=== PATIENT | female | born 1980 | race Caucasian/White ===

== ENCOUNTER 2016-10-23 06:48 | Inpatient (IN) | payer BC ==
[2016-10-23] MEDS ORDERED: Sodium Chloride 0.9% 10 ML Syringe FLUSH PRN (07:12)
[2016-10-23] MEDS ORDERED: Acetaminophen 325 MG Tab PO PRN (07:12)
[2016-10-23] MEDS ORDERED: Ondansetron 4 MG/2 ML SDV IVPUSH PRN ×2 (07:12→19:18)
[2016-10-23] MEDS ORDERED: Nalbuphine 20 MG/1 ML Amp IVPUSH PRN (07:12)
--- NOTE | 2016-10-23 07:12 | PCM.LDHP ---
L&D History of Present Illness - General Date of Service: 10/23/16 Admit Problem/Dx: Admission Diagnosis/Problem Admission Diagnosis/Problem Source of Information: Patient History Limitations: Reports: No limitations - History of Present Illness Introduction:: Patient is a 35 y/o at 37 2/7 wks in a di-di twin gestation who presents today for IOL for gestational HTN. Has been doing well since last seen. No issues with headaches, vision changes, RUQ pain. No contractions or signs of labor. Getting good FM x2. No other issues. - Related Data Allergies/Adverse Reactions: Allergies Allergy/AdvReac Type Severity Reaction Status Date / Time amoxicillin Allergy Hives Verified 10/05/16 09:26 nut - unspecified Allergy Anaphylactic Verified 10/05/16 09:26 Shock fruits Allergy Swollen Uncoded 10/05/16 09:26 Tongue vegetables Allergy Swollen Uncoded 10/05/16 09:26 Tongue Home Medications: Home Meds Albuterol [Ventolin HFA] 108 mcg INH Q4H 10/05/16 [History] Budesonide 32 mcg NS DAILY 10/05/16 [History] Cetirizine [ZyrTEC] 10 mg PO DAILY 10/05/16 [History] EPINEPHrine [Epipen] 0.3 mg IM ONETIME PRN 10/05/16 [History] Folic Acid 1 mg PO DAILY 10/05/16 [History] Montelukast [Singulair] 10 mg PO DAILY 10/05/16 [History] Omeprazole 20 mg PO DAILY 10/05/16 [History] Past Medical History Respiratory History: Reports: Asthma 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: : 2 Para: 0 LMP (Approximate): - Past Surgical History HEENT Surgical History: Reports: Oral surgery (tooth extraction) Social & Family History - Tobacco Use Smoking Status *Q: Never Smoker - Alcohol Use Alcohol Use History: No - Recreational Drug Use Recreational Drug Use: No H&P Review of Systems - Review of Systems: Review Of Systems: See Below General: Reports: no symptoms Pulmonary: Reports: No Symptoms Cardiovascular: Reports: no symptoms Gastrointestinal: Reports: No symptoms Genitourinary: Reports: no symptoms Musculoskeletal: Reports: no symptoms Psychiatric: Reports: no symptoms Neurological: Reports: No Symptoms L&D Exam - Exam Exam: See Below - Vital Signs Weight: 115.076 kg - OB Specific Contraction Intensity: Irritability movement: active heart tones: present heart tones per min: 130 (A, 130 B) Heart Rate (FHR) Variability: Moderate (6-25 bmp) Presentation: Vertex (Vertex for baby A, Baby B oblique with head to maternal right) - Cullen Score Cullen Score Cervix Position: Posterior Cullen Score Consistency: Soft Cullen Score Effacement: 51-70% Cullen Score Dilation: 1-2 cm Cullen Score Infant's Station: -1 ,0 Cullen Score Total: 7 - Exam General: alert, oriented, cooperative Lungs: Clear to auscultation, Normal respiratory effort Cardiovascular: regular rate, regular rhythm Abdomen: soft Genitourinary: Normal external exam Extremities: normal inspection Skin: warm, dry, intact - Patient Data Result Diagrams: 10/23/16 07:47 - Problem List (1) Dichorionic diamniotic twin in third trimester SNOMED Code(s): 919011527 ICD Code: O30.043 - TWIN , DICHORIONIC/DIAMNIOTIC, THIRD TRIMESTER Status: Acute Current Visit: No (2) 37 weeks gestation of SNOMED Code(s): 05713851 ICD Code: Z3A.37 - 37 WEEKS GESTATION OF Status: Acute Current Visit: Yes (3) Gestational hypertension SNOMED Code(s): 08343460 ICD Code: O13.9 - GESTATIONAL HTN W/O SIGNIFICANT PROTEINURIA, UNSP TRIMESTER Status: Acute Current Visit: Yes Qualifiers: Trimester: third trimester Qualified Code(s): O13.3 - Gestational [ -induced] hypertension without significant proteinuria, third trimester (4) GBS (group B Streptococcus carrier), +RV culture, currently SNOMED Code(s): 98506135, 939718069 ICD Code: O99.820 - STREPTOCOCCUS B CARRIER STATE COMPLICATING Status: Acute Current Visit: Yes Problem List Initiated/Reviewed/Updated: Yes Assessment/Plan Comment:: 35 y/o at 37 2/7 wks in a di-di twin gestation who presents for IOL for gestational HTN. Last US on 10/17 showed Baby A to be vertex and 3064 grams and Baby B to be breech with a weight of 2629 grams. Growth discordance of 14%. Today on bedside US Baby A is vertex and Baby B is oblique, head down to maternal right. Discussed with patient finding. Will plan for vaginal delivery. She is aware that if Baby B does not come down in a vertex fashion that the would necessitate either breech extraction vs proceeding with c- section. She is aware of risks of breech extraction. Also aware of risks of c- section. Otherwise will perform baseline labs today on admission. Close monitoring of BP's. GBS positive and will need vancomycin. Will start now. Pitocin to be started for induction with AROM when able. Patient plans epidural in labor.
[2016-10-23] MEDS ORDERED: Oxytocin/Lactated Ringers 10 UNIT/1,000 ML BAG IV SCH (07:15)
[2016-10-23] MEDS: Lactated Ringers 1,000 ML IV SCH ×5 (08:01→21:50)
[2016-10-23] MEDS: Oxytocin/Lactated Ringers 10 UNIT/1,000 ML BAG IV SCH (08:32)
--- NOTE | 2016-10-23 12:11 | PCM.PNLD ---
Labor Progress Note - VS & Meds Vital Signs: Last Vital Signs Temp 37.1 C 10/23/16 07:12 Pulse 92 10/23/16 07:12 Resp 20 10/23/16 07:12 BP 137/91 H 10/23/16 07:12 Pulse Ox 97 10/23/16 07:12 Active Medications: Current Medications Acetaminophen (Tylenol) 650 mg PO Q4H PRN PRN Reason: Pain (Mild 1-3) and fever Lactated Ringer's (Ringers, Lactated) 1,000 mls @ 40 mls/hr IV ASDIRECTED GUERLINE Last Admin: 10/23/16 11:17 Dose: 100 mls/hr Vancomycin HCl 1 gm/ Sodium (Chloride) 250 mls @ 250 mls/hr IV Q12H GUERLINE Last Admin: 10/23/16 08:28 Dose: 250 mls/hr Oxytocin/Lactated Ringer's (Pitocin In Lr 10 Units/1,000 Ml) 10 unit in 1,000 mls @ 500 mls/hr IV TITRATE GUERLINE PRN Reason: Protocol Oxytocin/Lactated Ringer's (Pitocin In Lr 10 Units/1,000 Ml) 10 unit in 1,000 mls @ 12 mls/hr IV TITRATE GUERLINE; 2 MUNITS/MIN PRN Reason: Protocol Last Titration: 10/23/16 11:14 Dose: 8 munits/min, 48 mls/hr Nalbuphine HCl (Nubain) 10 mg IVPUSH Q2H PRN PRN Reason: Pain (moderate 4-6) Ondansetron HCl (Zofran) 4 mg IVPUSH Q4H PRN PRN Reason: Nausea/Vomiting Sodium Chloride (Saline Flush) 10 ml FLUSH ASDIRECTED PRN PRN Reason: Keep Vein Open - Uterine Contractions Uterine Monitoring Mode: External [place] Contraction Intensity: Mild to Moderate - Monitoring Monitor Mode: External Ultrasound Heart Rate (FHR) Baseline: 140 (A, 135 B) Heart Rate (FHR) Variability: Moderate (6-25 bmp) Accelerations: Present, 15x15 Decelerations: Variable (Variables noted on both babies, intermittent. Slightly deeper on Baby B) Strip Review: Category II - Vaginal Exam Dilation (cm): 2 Effacement (Percent): 50 Station: -1 Cervical Position: Posterior - Labor Progress (Free Text) Labor Progress: Patient doing well. On 8 of pitocin. Feeling some tightening/discomfort. AROM performed with release of slight blood tinged fluid. Continue present management. BP's normal to mild range. Labs normal other than +1 protein.
--- NOTE | 2016-10-23 12:12 | PCM.PREANE ---
Preanesthetic Assessment - Physical Assessment O2 Sat by Pulse Oximetry: 97 Respiratory Rate: 20 Vital Signs: Last Vital Signs Temp 37.1 C 10/23/16 07:12 Pulse 92 10/23/16 07:12 Resp 20 10/23/16 07:12 BP 137/91 H 10/23/16 07:12 Pulse Ox 97 10/23/16 07:12 Height: 1.68 m Weight: 113.761 kg - Lab Values: Laboratory Last Values WBC 10.22 K/mm3 (3.98-10.04) H 10/23/16 07:47 RBC 4.12 M/mm3 (3.98-5.22) 10/23/16 07:47 Hgb 12.7 gm/L (11.2-15.7) 10/23/16 07:47 Hct 38.8 % (34.1-44.9) 10/23/16 07:47 MCV 94.2 fl (79.4-94.8) 10/23/16 07:47 MCH 30.8 pg (25.6-32.2) 10/23/16 07:47 MCHC 32.7 g/dl (32.2-35.5) 10/23/16 07:47 RDW Std Deviation 42.6 fL (36.4-46.3) 10/23/16 07:47 Plt Count 202 K/mm3 (182-369) 10/23/16 07:47 MPV 11.8 fl (9.4-12.3) 10/23/16 07:47 Creatinine 0.8 mg/dL (0.55-1.02) 10/23/16 07:47 Est Cr Clr Drug Dosing 91.01 mL/min 10/23/16 07:47 Estimated GFR (MDRD) > 60 mL/min (>60) 10/23/16 07:47 AST 38 U/L (15-37) H 10/23/16 07:47 ALT 45 U/L (14-59) 10/23/16 07:47 Urine Color Yellow (Yellow) 10/23/16 09:50 Urine Appearance Clear (Clear) 10/23/16 09:50 Urine pH 7.0 (5.0-8.0) 10/23/16 09:50 Ur Specific [place] 1.020 (1.005-1.030) 10/23/16 09:50 Urine Protein 1+ (Negative) H 10/23/16 09:50 Urine Glucose (UA) Negative (Negative) 10/23/16 09:50 Urine Ketones Negative (Negative) 10/23/16 09:50 Urine Occult Blood 3+ (Negative) H 10/23/16 09:50 Urine Nitrite Negative (Negative) 10/23/16 09:50 Urine Bilirubin Negative (Negative) 10/23/16 09:50 Urine Urobilinogen 0.2 (0.2-1.0) 10/23/16 09:50 Ur Leukocyte Esterase Negative (Negative) 10/23/16 09:50 Urine RBC 5-10 /hpf (0-5) H 10/23/16 09:50 Urine WBC 0-5 /hpf (0-5) 10/23/16 09:50 Ur Epithelial Cells 0-5 /hpf (0-5) 10/23/16 09:50 Urine Bacteria Few /hpf (FEW) 10/23/16 09:50 Urine Mucus Not seen /hpf (FEW) 10/23/16 09:50 Blood Type A POSITIVE 10/23/16 07:47 Gel Antibody Screen Negative 10/23/16 07:47 - Allergies Allergies/Adverse Reactions: Allergies Allergy/AdvReac Type Severity Reaction Status Date / Time amoxicillin Allergy Hives Verified 10/05/16 09:26 nut - unspecified Allergy Anaphylactic Verified 10/05/16 09:26 Shock fruits Allergy Swollen Uncoded 10/05/16 09:26 Tongue vegetables Allergy Swollen Uncoded 10/05/16 09:26 Tongue PreAnesthesia Questionnaire Respiratory History: Reports: Asthma 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: - Past Surgical History HEENT Surgical History: Reports: Oral surgery (tooth extraction) - SUBSTANCE USE Smoking Status *Q: Never Smoker Recreational Drug Use History: No - HOME MEDS Home Medications: Home Meds Albuterol [Ventolin HFA] 108 mcg INH Q4H PRN 10/05/16 [History] Budesonide 32 mcg NS DAILY 10/05/16 [History] Cetirizine [ZyrTEC] 10 mg PO DAILY 10/05/16 [History] EPINEPHrine [Epipen] 0.3 mg IM ONETIME PRN 10/05/16 [History] Folic Acid 1 mg PO DAILY 10/05/16 [History] Montelukast [Singulair] 10 mg PO DAILY 10/05/16 [History] Omeprazole 20 mg PO DAILY 10/05/16 [History] Multivitamin [Flintstones] 1 each PO DAILY 10/23/16 [History] Omeprazole Magnesium [Prilosec Otc] 20 mg PO 10/23/16 [History] - CURRENT (IN HOUSE) MEDS Current Meds: Current Medications Acetaminophen (Tylenol) 650 mg PO Q4H PRN PRN Reason: Pain (Mild 1-3) and fever Lactated Ringer's (Ringers, Lactated) 1,000 mls @ 40 mls/hr IV ASDIRECTED GUERLINE Last Admin: 10/23/16 11:17 Dose: 100 mls/hr Vancomycin HCl 1 gm/ Sodium (Chloride) 250 mls @ 250 mls/hr IV Q12H GUERLINE Last Admin: 10/23/16 08:28 Dose: 250 mls/hr Oxytocin/Lactated Ringer's (Pitocin In Lr 10 Units/1,000 Ml) 10 unit in 1,000 mls @ 500 mls/hr IV TITRATE GUERLINE PRN Reason: Protocol Oxytocin/Lactated Ringer's (Pitocin In Lr 10 Units/1,000 Ml) 10 unit in 1,000 mls @ 12 mls/hr IV TITRATE GUERLINE; 2 MUNITS/MIN PRN Reason: Protocol Last Titration: 10/23/16 11:14 Dose: 8 munits/min, 48 mls/hr Nalbuphine HCl (Nubain) 10 mg IVPUSH Q2H PRN PRN Reason: Pain (moderate 4-6) Ondansetron HCl (Zofran) 4 mg IVPUSH Q4H PRN PRN Reason: Nausea/Vomiting Sodium Chloride (Saline Flush) 10 ml FLUSH ASDIRECTED PRN PRN Reason: Keep Vein Open Preanesthetic Assessment - ANESTHESIA/TRANSFUSION/FAMILY HX Anesthesia/Transfusion History: No Prior Anesthesia, No Prior Transfusion(s) Family History of Anesthesia Reaction: No - REVIEW OF SYSTEMS Constitutional: Reports: no symptoms 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 Respiratory: Reports: no symptoms (asthma (uses symbicort daily)) Cardiovascular: Reports: blood pressure problem (gestational htn, not taking any medications for htn) GI: Reports: no symptoms (GERD with ) Other: Reports: None - PHYSICAL ASSESSMENT O2 Sat by Pulse Oximetry: 97 RR: 20 Vital Signs: Last Vital Signs Temp 37.1 C 10/23/16 07:12 Pulse 92 10/23/16 07:12 Resp 20 10/23/16 07:12 BP 137/91 H 10/23/16 07:12 Pulse Ox 97 10/23/16 07:12 Height: 1.68 m Weight: 113.761 kg NPO Status Date: 10/23/16 NPO Status Time: 12:00 ASA Class: 2 Mental Status: Alert & Oriented x3 Airway Class: Mallampati = 2 Dentition: Reports: Normal Dentition Thyro-Mental Finger Breadths: 3 Mouth Opening Finger Breadths: 3 ROM/Head Extension: Full Respiratory Status: lungs clear to auscultation bilaterally Cardiovascular Status: regular rate & rhythm, normal S1, S2, no murmur, blood pressure WNL - LAB Values: Laboratory Last Values WBC 10.22 K/mm3 (3.98-10.04) H 10/23/16 07:47 RBC 4.12 M/mm3 (3.98-5.22) 10/23/16 07:47 Hgb 12.7 gm/L (11.2-15.7) 10/23/16 07:47 Hct 38.8 % (34.1-44.9) 10/23/16 07:47 MCV 94.2 fl (79.4-94.8) 10/23/16 07:47 MCH 30.8 pg (25.6-32.2) 10/23/16 07:47 MCHC 32.7 g/dl (32.2-35.5) 10/23/16 07:47 RDW Std Deviation 42.6 fL (36.4-46.3) 10/23/16 07:47 Plt Count 202 K/mm3 (182-369) 10/23/16 07:47 MPV 11.8 fl (9.4-12.3) 10/23/16 07:47 Creatinine 0.8 mg/dL (0.55-1.02) 10/23/16 07:47 Est Cr Clr Drug Dosing 91.01 mL/min 10/23/16 07:47 Estimated GFR (MDRD) > 60 mL/min (>60) 10/23/16 07:47 AST 38 U/L (15-37) H 10/23/16 07:47 ALT 45 U/L (14-59) 10/23/16 07:47 Urine Color Yellow (Yellow) 10/23/16 09:50 Urine Appearance Clear (Clear) 10/23/16 09:50 Urine pH 7.0 (5.0-8.0) 10/23/16 09:50 Ur Specific [place] 1.020 (1.005-1.030) 10/23/16 09:50 Urine Protein 1+ (Negative) H 10/23/16 09:50 Urine Glucose (UA) Negative (Negative) 10/23/16 09:50 Urine Ketones Negative (Negative) 10/23/16 09:50 Urine Occult Blood 3+ (Negative) H 10/23/16 09:50 Urine Nitrite Negative (Negative) 10/23/16 09:50 Urine Bilirubin Negative (Negative) 10/23/16 09:50 Urine Urobilinogen 0.2 (0.2-1.0) 10/23/16 09:50 Ur Leukocyte Esterase Negative (Negative) 10/23/16 09:50 Urine RBC 5-10 /hpf (0-5) H 10/23/16 09:50 Urine WBC 0-5 /hpf (0-5) 10/23/16 09:50 Ur Epithelial Cells 0-5 /hpf (0-5) 10/23/16 09:50 Urine Bacteria Few /hpf (FEW) 10/23/16 09:50 Urine Mucus Not seen /hpf (FEW) 10/23/16 09:50 Blood Type A POSITIVE 10/23/16 07:47 Gel Antibody Screen Negative 10/23/16 07:47 - ALLERGIES Allergies/Adverse Reactions: Allergies Allergy/AdvReac Type Severity Reaction Status Date / Time amoxicillin Allergy Hives Verified 10/05/16 09:26 nut - unspecified Allergy Anaphylactic Verified 10/05/16 09:26 Shock fruits Allergy Swollen Uncoded 10/05/16 09:26 Tongue vegetables Allergy Swollen Uncoded 10/05/16 09:26 Tongue - BLOOD Blood Available: No Product(s) Available: None - ANESTHESIA PLAN Preop Beta Denisa: No Anesthesia Type Planned: Epidural - ACKNOWLEDGEMENTS Pt an Appropriate Candidate for the Planned Anesthesia: Yes Alternatives and Risks of Anesthesia Discussed w Pt/Guardian: Yes Pt/Guardian Understands and Agrees with Anesthesia Plan: Yes
[2016-10-23] MEDS ORDERED: fentaNYL 100 MCG/2 ML SDV EPIDUR PRN (19:18)
[2016-10-23] MEDS ORDERED: ePHEDrine 50 MG/ML SDV IVPUSH PRN (19:18)
[2016-10-23] MEDS ORDERED: diphenhydrAMINE 50 MG/ML SDV IVPUSH PRN (19:18)
--- NOTE | 2016-10-23 20:44 | PCM.PNLD ---
Labor Progress Note - VS & Meds Vital Signs: Last Vital Signs Temp 37.1 C 10/23/16 07:12 Pulse 92 10/23/16 07:12 Resp 20 10/23/16 12:23 BP 137/91 H 10/23/16 07:12 Pulse Ox 97 10/23/16 12:23 Active Medications: Current Medications Acetaminophen (Tylenol) 650 mg PO Q4H PRN PRN Reason: Pain (Mild 1-3) and fever Diphenhydramine HCl (Benadryl) 25 mg IVPUSH Q6H PRN PRN Reason: Pruritis Ephedrine Sulfate (Ephedrine Sulfate) 5 mg IVPUSH ASDIRECTED PRN PRN Reason: Hypotension Fentanyl (Sublimaze) 100 mcg EPIDUR Q3H PRN PRN Reason: Pain Fentanyl/Bupivacaine HCl (Fentanyl/Bupivacaine/Ns 2 Mcg-0.125% 100 Ml) 100 ml EPIDUR ASDIRECTED GUERLINE Lactated Ringer's (Ringers, Lactated) 1,000 mls @ 40 mls/hr IV ASDIRECTED GUERLINE Last Admin: 10/23/16 20:37 Dose: 999 mls/hr Vancomycin HCl 1 gm/ Sodium (Chloride) 250 mls @ 250 mls/hr IV Q12H GUERLINE Last Admin: 10/23/16 20:39 Dose: 250 mls/hr Oxytocin/Lactated Ringer's (Pitocin In Lr 10 Units/1,000 Ml) 10 unit in 1,000 mls @ 500 mls/hr IV TITRATE GUERLINE PRN Reason: Protocol Oxytocin/Lactated Ringer's (Pitocin In Lr 10 Units/1,000 Ml) 10 unit in 1,000 mls @ 12 mls/hr IV TITRATE GUERLINE; 2 MUNITS/MIN PRN Reason: Protocol Last Titration: 10/23/16 18:46 Dose: 6 munits/min, 36 mls/hr Nalbuphine HCl (Nubain) 10 mg IVPUSH Q2H PRN PRN Reason: Pain (moderate 4-6) Ondansetron HCl (Zofran) 4 mg IVPUSH Q4H PRN PRN Reason: Nausea/Vomiting Ondansetron HCl (Zofran) 4 mg IVPUSH ONETIME PRN PRN Reason: Nausea/Vomiting Sodium Chloride (Saline Flush) 10 ml FLUSH ASDIRECTED PRN PRN Reason: Keep Vein Open - Uterine Contractions Uterine Monitoring Mode: External [place] Contraction Intensity: Moderate to Strong - Monitoring Monitor Mode: External Ultrasound Heart Rate (FHR) Baseline: 140 (A, 140 B) Heart Rate (FHR) Variability: Moderate (6-25 bmp) Accelerations: Present, 15x15 Decelerations: Variable (Variables noted on both babies, intermittent. Slightly deeper on Baby B) Strip Review: Category II - Labor Progress (Free Text) Labor Progress: Patient doing well. Now starting to feel more uncomfortable. Pitocin has been decreased recently as contraction pattern picking up. Now at 6. Continue vancomycin. BP's mild range. Continue close observation.
[2016-10-23] MEDS: Bupivacaine/fentaNYL/NS 100 ML Bag EPIDUR SCH (21:04)
[2016-10-24] MEDS: Lactated Ringers 1,000 ML IV SCH ×2 (01:41→05:21)
[2016-10-24] MEDS: Oxytocin/Lactated Ringers 10 UNIT/1,000 ML BAG IV SCH (01:41)
--- NOTE | 2016-10-24 03:08 | PCM.PNLD ---
Labor Progress Note - VS & Meds Vital Signs: Last Vital Signs Temp 37.1 C 10/23/16 07:12 Pulse 92 10/23/16 07:12 Resp 20 10/23/16 12:23 BP 137/91 H 10/23/16 07:12 Pulse Ox 97 10/23/16 12:23 Active Medications: Current Medications Acetaminophen (Tylenol) 650 mg PO Q4H PRN PRN Reason: Pain (Mild 1-3) and fever Diphenhydramine HCl (Benadryl) 25 mg IVPUSH Q6H PRN PRN Reason: Pruritis Ephedrine Sulfate (Ephedrine Sulfate) 5 mg IVPUSH ASDIRECTED PRN PRN Reason: Hypotension Fentanyl (Sublimaze) 100 mcg EPIDUR Q3H PRN PRN Reason: Pain Last Admin: 10/23/16 21:04 Dose: 100 mcg Fentanyl/Bupivacaine HCl (Fentanyl/Bupivacaine/Ns 2 Mcg-0.125% 100 Ml) 100 ml EPIDUR ASDIRECTED GUERLINE Last Admin: 10/23/16 21:04 Dose: 100 ml Lactated Ringer's (Ringers, Lactated) 1,000 mls @ 40 mls/hr IV ASDIRECTED GUERLINE Last Admin: 10/24/16 01:41 Dose: 125 mls/hr Vancomycin HCl 1 gm/ Sodium (Chloride) 250 mls @ 250 mls/hr IV Q12H GUERLINE Last Admin: 10/23/16 20:39 Dose: 250 mls/hr Oxytocin/Lactated Ringer's (Pitocin In Lr 10 Units/1,000 Ml) 10 unit in 1,000 mls @ 500 mls/hr IV TITRATE GUERLINE PRN Reason: Protocol Oxytocin/Lactated Ringer's (Pitocin In Lr 10 Units/1,000 Ml) 10 unit in 1,000 mls @ 12 mls/hr IV TITRATE GUERLINE; 2 MUNITS/MIN PRN Reason: Protocol Last Titration: 10/24/16 02:36 Dose: 4 munits/min, 24 mls/hr Nalbuphine HCl (Nubain) 10 mg IVPUSH Q2H PRN PRN Reason: Pain (moderate 4-6) Ondansetron HCl (Zofran) 4 mg IVPUSH Q4H PRN PRN Reason: Nausea/Vomiting Ondansetron HCl (Zofran) 4 mg IVPUSH ONETIME PRN PRN Reason: Nausea/Vomiting Sodium Chloride (Saline Flush) 10 ml FLUSH ASDIRECTED PRN PRN Reason: Keep Vein Open - Uterine Contractions Uterine Monitoring Mode: External [place] Contraction Intensity: Moderate to Strong - Monitoring Monitor Mode: External Ultrasound Heart Rate (FHR) Baseline: 140 (A, 145 B) Heart Rate (FHR) Variability: Moderate (6-25 bmp) Accelerations: Present, 15x15 Decelerations: Variable (Variables noted on both babies, intermittent. Slightly deeper on Baby B) Strip Review: Category II - Vaginal Exam Dilation (cm): 8-9 Effacement (Percent): 90 Station: 0 Cervical Position: Anterior - Labor Progress (Free Text) Labor Progress: Patient doing well currently. Pitocin and been up and down throughout the night. Currently at 4. Cervix with great change since last exam. Will continue present augmentation. BP's remain normal to mild range. Will assess again in a few hours.
[2016-10-24] MEDS: Bupivacaine/fentaNYL/NS 100 ML Bag EPIDUR SCH (06:10)
[2016-10-24] MEDS ORDERED: Misoprostol 200 MCG Tab ONE (07:52)
[2016-10-24] MEDS ORDERED: Albuterol 6.7 GM Inhaler INH PRN (08:38)
[2016-10-24] MEDS ORDERED: Benzocaine/Menthol 20%-0.5% Spray 56 GM Canister TOP PRN (08:38)
[2016-10-24] MEDS ORDERED: Misoprostol 200 MCG Tab PO ONE (08:38)
[2016-10-24] MEDS ORDERED: Docusate Sodium 100 MG Cap PO PRN (08:38)
[2016-10-24] MEDS ORDERED: Acetaminophen 325 MG Tab PO PRN (08:38)
[2016-10-24] MEDS ORDERED: Lanolin 100% Cream 7 GM Tube TOP PRN (08:38)
[2016-10-24] MEDS ORDERED: Witch Hazel Medicated Pads 100/Jar TOP PRN (08:38)
--- NOTE | 2016-10-24 08:38 | PCM.DEL ---
L & D Note - General Info Date of Service: 10/24/16 - Delivery Note Labor: induced by ARM, induced by oxytocin Delivery Outcome: Livebirth Infant Delivery Method: Spontaneous Vaginal Delivery Infant Delivery Mode: Spontaneous Presentation: Left Occiput Anterior (RALF) (Baby A RALF, Baby B removed by breech extraction) Nuchal cord: none Anesthesia Type: Epidural Amniotic Fluid Description: Clear Episiotomy Type: None Laceration: 1st degree Suture type: vicryl Suture size: 2-0 Placenta: intact, spontaneous Cord: 3 vessels Estimated blood loss: 500 Resuscitation needed: Yes [place]: bulb syringe, stimulated, warmed, blanket used, warmer used Delivery Comments (Free Text/Narrative):: Patient found to be complete and began pushing. With maternal pushing effort Baby A head delivered from an RALF presentation. With gentle downward traction the shoulders and body delivered. Cord clamped and cut. Baby handed to awaiting electronics utility worker. Cord blood obtained. Inspection then performed and showed patient to be complete. Baby B head not engaged. Discussed again with patient options and she did desire trial of breech extraction. Hand placed into the uterus until foot able to be grasped. It was brought down out the vagina. With this ROM is occur. Another hand placed into the uterus and second foot grasped and also brought out the vagina. Gentle traction placed until hips visible. At this point a blue towel was placed over the hips and gentle traction and rotation done until one and then the other arms were delivered. Patient asked to push and head delivered without complication. Cord clamped and cut. [facility] obtained. Placenta allowed time to separate and then expelled. Moderate amount of bleeding encountered. Patient given 60 mcg of buccal cytote and uterine massage performed. Bleeding responded appropriately. Inspection of the perineum showed a 1st degree tear which was repaired with a 2-0 vicryl in the typical fashion. - Patient Data Vitals - most recent: Last Vital Signs Temp 37.1 C 10/23/16 07:12 Pulse 92 10/23/16 07:12 Resp 20 10/23/16 12:23 BP 137/91 H 10/23/16 07:12 Pulse Ox 97 10/23/16 12:23 Weight - most recent: 113.761 kg I&O - last 24 hours: Intake & Output 03/10/24/16 10/24/16 22:59 06:59 14:59 Intake Total 0 Balance 0 Lab Results last 24 hrs: Laboratory Results - last 24 hr 10/23/16 10/23/16 Range/Units 07:47 09:50 Urine Color Yellow (Yellow) Urine Appearance Clear (Clear) Urine pH 7.0 (5.0-8.0) Ur Specific [place] 1.020 (1.005-1.030) Urine Protein 1+ H (Negative) Urine Glucose (UA) Negative (Negative) Urine Ketones Negative (Negative) Urine Occult Blood 3+ H (Negative) Urine Nitrite Negative (Negative) Urine Bilirubin Negative (Negative) Urine Urobilinogen 0.2 (0.2-1.0) Ur Leukocyte Esterase Negative (Negative) Urine RBC 5-10 H (0-5) /hpf Urine WBC 0-5 (0-5) /hpf Ur Epithelial Cells 0-5 (0-5) /hpf Urine Bacteria Few (FEW) /hpf Urine Mucus Not seen (FEW) /hpf Blood Type A POSITIVE Gel Antibody Screen Negative Med Orders - Current: Current Medications Acetaminophen (Tylenol) 650 mg PO Q4H PRN PRN Reason: Pain (Mild 1-3) and fever Diphenhydramine HCl (Benadryl) 25 mg IVPUSH Q6H PRN PRN Reason: Pruritis Ephedrine Sulfate (Ephedrine Sulfate) 5 mg IVPUSH ASDIRECTED PRN PRN Reason: Hypotension Fentanyl (Sublimaze) 100 mcg EPIDUR Q3H PRN PRN Reason: Pain Last Admin: 10/23/16 21:04 Dose: 100 mcg Fentanyl/Bupivacaine HCl (Fentanyl/Bupivacaine/Ns 2 Mcg-0.125% 100 Ml) 100 ml EPIDUR ASDIRECTED COUNT INCLUDES THE [facility] Last Admin: 10/23/16 21:04 Dose: 100 ml Lactated Ringer's (Ringers, Lactated) 1,000 mls @ 40 mls/hr IV ASDIRECTED COUNT INCLUDES THE [facility] Last Admin: 10/24/16 01:41 Dose: 125 mls/hr Vancomycin HCl 1 gm/ Sodium (Chloride) 250 mls @ 250 mls/hr IV Q12H COUNT INCLUDES THE [facility] Last Admin: 10/23/16 20:39 Dose: 250 mls/hr Oxytocin/Lactated Ringer's (Pitocin In Lr 10 Units/1,000 Ml) 10 unit in 1,000 mls @ 500 mls/hr IV TITRATE GUERLINE PRN Reason: Protocol Oxytocin/Lactated Ringer's (Pitocin In Lr 10 Units/1,000 Ml) 10 unit in 1,000 mls @ 12 mls/hr IV TITRATE GUERLINE; 2 MUNITS/MIN PRN Reason: Protocol Last Titration: 10/24/16 03:11 Dose: 0 munits/min, 0 mls/hr Nalbuphine HCl (Nubain) 10 mg IVPUSH Q2H PRN PRN Reason: Pain (moderate 4-6) Ondansetron HCl (Zofran) 4 mg IVPUSH Q4H PRN PRN Reason: Nausea/Vomiting Ondansetron HCl (Zofran) 4 mg IVPUSH ONETIME PRN PRN Reason: Nausea/Vomiting Sodium Chloride (Saline Flush) 10 ml FLUSH ASDIRECTED PRN PRN Reason: Keep Vein Open Discontinued Medications Misoprostol (Cytotec) Confirm Administered Dose 600 mcg .ROUTE .Embue-MED ONE Stop: 10/24/16 07:53 - Problem List & Annotations (1) Dichorionic diamniotic twin in third trimester SNOMED Code(s): 987141572 Code(s): O30.043 - TWIN , DICHORIONIC/DIAMNIOTIC, THIRD TRIMESTER Status: Acute Current Visit: No (2) 37 weeks gestation of SNOMED Code(s): 77456316 Code(s): Z3A.37 - 37 WEEKS GESTATION OF Status: Acute Current Visit: Yes (3) Gestational hypertension SNOMED Code(s): 89816730 Code(s): O13.9 - GESTATIONAL HTN W/O SIGNIFICANT PROTEINURIA, UNSP TRIMESTER Status: Acute Current Visit: Yes Qualifiers: Trimester: third trimester Qualified Code(s): O13.3 - Gestational [ -induced] hypertension without significant proteinuria, third trimester (4) GBS (group B Streptococcus carrier), +RV culture, currently SNOMED Code(s): 18784338, 309965551 Code(s): O99.820 - STREPTOCOCCUS B CARRIER STATE COMPLICATING Status: Acute Current Visit: Yes (5) Twin delivered vaginally SNOMED Code(s): 870724567 Code(s): O30.009 - TWIN , UNSP NUM PLCNTA & AMNIO SACS, UNSP TRIMESTER Status: Acute Current Visit: Yes - Problem List Review Problem List Initiated/Reviewed/Updated: Yes - My Orders Last 24 Hours: My Active Orders 10/23/16 07:45 Vancomycin [Vancocin] 1 gm Sodium Chloride 0.9% [Normal Saline] 250 ml IV Q12H 10/23/16 08:30 Oxytocin/Lactated Ringers [Pitocin in LR 10 Units/1,000 ML] 10 unit in 1,000 ml IV TITRATE 10/23/16 Dinner Clear Liquid Diet [DIET] - Assessment Assessment:: 35 y/oG2 now P1012 PPD#0 from at 37 3/7 wks - Plan Plan:: of twin gestation * Routine cares * Encourage breast feeding * Discharge home in 2 days Gestational HTN * BP check in 1-2 weeks
[2016-10-24] MEDS: Ibuprofen 600 MG Tab PO PRN ×2 (10:56→18:33)
[2016-10-25] MEDS: Ibuprofen 600 MG Tab PO PRN ×2 (04:25→16:06)
--- NOTE | 2016-10-25 07:14 | PCM.PNPP ---
- General Info Date of Service: 10/25/16 Functional Status: Reports: pain controlled, tolerating diet, ambulating, urinating - Review of Systems General: Reports: No Symptoms Pulmonary: Reports: no symptoms Cardiovascular: Reports: No Symptoms Gastrointestinal: Reports: No symptoms Genitourinary: Reports: no symptoms Musculoskeletal: Reports: no symptoms - Patient Data Vital Signs - most recent: Last Vital Signs Temp 36.2 C 10/25/16 04:39 Pulse 74 10/25/16 04:39 Resp 18 10/25/16 04:39 BP 129/83 10/25/16 04:39 Pulse Ox 96 10/25/16 04:39 Weight - most recent: 113.761 kg I&O - last 24 hours: Intake & Output 10/24/16 10/25/16 10/25/16 22:59 06:59 14:59 Intake Total 240 Balance 240 Med Orders - Current: Current Medications Acetaminophen (Tylenol) 650 mg PO Q4H PRN PRN Reason: mild pain or fever Albuterol (Proventil Hfa) 0 gm INH Q4H PRN PRN Reason: Shortness of Breath Benzocaine/Menthol (Dermoplast Pain Relief [place]) 0 gm TOP ASDIRECTED PRN PRN Reason: Perineal Comfort Measure Last Admin: 10/24/16 10:57 Dose: 1 spray Docusate Sodium (Colace) 100 mg PO BID PRN PRN Reason: Constipation Emollient Ointment (Lansinoh Hpa) 0 gm TOP ASDIRECTED PRN PRN Reason: Sore Nipples Last Admin: 10/24/16 18:34 Dose: 7 gm Flunisolide (Nasalide Nasal [place]) 0 ml BAMBI DAILY GUERLINE Last Admin: 10/24/16 11:47 Dose: Not Given Ibuprofen (Motrin) 600 mg PO Q4H PRN PRN Reason: Mild pain or fever Last Admin: 10/25/16 04:25 Dose: 600 mg [place] (Tucks) 1 pad TOP ASDIRECTED PRN PRN Reason: Hemorrhoid pain Last Admin: 10/24/16 10:57 Dose: 1 pad Discontinued Medications Acetaminophen (Tylenol) 650 mg PO Q4H PRN PRN Reason: Pain (Mild 1-3) and fever Diphenhydramine HCl (Benadryl) 25 mg IVPUSH Q6H PRN PRN Reason: Pruritis Ephedrine Sulfate (Ephedrine Sulfate) 5 mg IVPUSH ASDIRECTED PRN PRN Reason: Hypotension Fentanyl (Sublimaze) 100 mcg EPIDUR Q3H PRN PRN Reason: Pain Last Admin: 10/23/16 21:04 Dose: 100 mcg Fentanyl/Bupivacaine HCl (Fentanyl/Bupivacaine/Ns 2 Mcg-0.125% 100 Ml) 100 ml EPIDUR ASDIRECTED GUERLINE Last Admin: 10/24/16 06:10 Dose: 100 ml Lactated Ringer's (Ringers, Lactated) 1,000 mls @ 40 mls/hr IV ASDIRECTED GUERLINE Last Admin: 10/24/16 05:21 Dose: 125 mls/hr Vancomycin HCl 1 gm/ Sodium (Chloride) 250 mls @ 250 mls/hr IV Q12H GUERLINE Last Admin: 10/24/16 07:30 Dose: 250 mls/hr Oxytocin/Lactated Ringer's (Pitocin In Lr 10 Units/1,000 Ml) 10 unit in 1,000 mls @ 500 mls/hr IV TITRATE GUERLINE PRN Reason: Protocol Last Admin: 10/24/16 09:30 Dose: 500 ml/hr, 500 mls/hr Oxytocin/Lactated Ringer's (Pitocin In Lr 10 Units/1,000 Ml) 10 unit in 1,000 mls @ 12 mls/hr IV TITRATE GUERLINE; 2 MUNITS/MIN PRN Reason: Protocol Last Titration: 10/24/16 07:56 Dose: 999 mls/hr Misoprostol (Cytotec) Confirm Administered Dose 600 mcg .ROUTE .STK-MED ONE Stop: 10/24/16 07:53 Misoprostol (Cytotec) 600 mcg PO ONETIME ONE Stop: 10/24/16 08:39 Last Admin: 10/24/16 08:00 Dose: 600 mcg Nalbuphine HCl (Nubain) 10 mg IVPUSH Q2H PRN PRN Reason: Pain (moderate 4-6) Ondansetron HCl (Zofran) 4 mg IVPUSH Q4H PRN PRN Reason: Nausea/Vomiting Ondansetron HCl (Zofran) 4 mg IVPUSH ONETIME PRN PRN Reason: Nausea/Vomiting Sodium Chloride (Saline Flush) 10 ml FLUSH ASDIRECTED PRN PRN Reason: Keep Vein Open - Interaction Disposition, : in Room with Family Interaction: Holding Feeding: Attempted ; Nursed Fair/Poor Support Person: - Recovery Exam Fundal Tone: Firm Fundal Level: 1 Fingerbreadths Above Umbilicus Fundal Placement: Midline Lochia Amount: Moderate Lochia Color: Rubra/Red Perineum Description: Intact, Minimal Bruising/Swelling Other Perinuem Description: first degree with repair Episiotomy/Laceration: Approximated Bladder Status: Voiding Urinary Elimination: Voided - Exam General: alert, oriented, cooperative Abdomen: soft, no tenderness Extremities: edema Skin: warm, dry, intact - Problem List & Annotations (1) Dichorionic diamniotic twin in third trimester SNOMED Code(s): 846613164 Code(s): O30.043 - TWIN , DICHORIONIC/DIAMNIOTIC, THIRD TRIMESTER Status: Acute Current Visit: No (2) 37 weeks gestation of SNOMED Code(s): 13525507 Code(s): Z3A.37 - 37 WEEKS GESTATION OF Status: Acute Current Visit: Yes (3) Gestational hypertension SNOMED Code(s): 13482659 Code(s): O13.9 - GESTATIONAL HTN W/O SIGNIFICANT PROTEINURIA, UNSP TRIMESTER Status: Acute Current Visit: Yes Qualifiers: Trimester: third trimester Qualified Code(s): O13.3 - Gestational [ -induced] hypertension without significant proteinuria, third trimester (4) GBS (group B Streptococcus carrier), +RV culture, currently SNOMED Code(s): 21040739, 968958142 Code(s): O99.820 - STREPTOCOCCUS B CARRIER STATE COMPLICATING Status: Acute Current Visit: Yes (5) Twin delivered vaginally SNOMED Code(s): 956957967 Code(s): O30.009 - TWIN , UNSP NUM PLCNTA & AMNIO SACS, UNSP TRIMESTER Status: Acute Current Visit: Yes - Problem List Review Problem List Initiated/Reviewed/Updated: Yes - My Orders Last 24 Hours: My Active Orders 10/24/16 08:38 Acetaminophen [Tylenol] 650 mg PO Q4H PRN Albuterol [Proventil HFA] 0 gm INH Q4H PRN Benzocaine/Menthol [Dermoplast Pain Relief [place]] See Dose Instructions TOP ASDIRECTED PRN Docusate Sodium [Colace] 100 mg PO BID PRN Ibuprofen [Motrin] 600 mg PO Q4H PRN Lanolin [Lansinoh HPA] See Dose Instructions TOP ASDIRECTED PRN [place] [Tucks] 1 pad TOP ASDIRECTED PRN 10/24/16 08:39 Activity as Tolerated [RC] PER UNIT ROUTINE Vital Signs [RC] 04,12,20 Assess Lochia [WOMSER] Per Unit Routine Assess Uterine Involution [WOMSER] Per Unit Routine Breast Pump [WOMSER] Per Unit Routine Ice Therapy [OM.PC] Per Unit Routine Perineal Care [OM.PC] Per Unit Routine Peripheral IV Discontinue [OM.PC] Routine Sitz Bath [OM.PC] Per Unit Routine 10/24/16 08:45 Heat Therapy [OM.PC] PRN 10/24/16 09:00 Flunisolide [Nasalide Nasal [place]] 0 ml BAMBI DAILY 10/24/16 15:50 Resuscitation Status Routine 10/24/16 Breakfast Regular Diet [DIET] 10/25/16 08:45 Heat Therapy [OM.PC] PRN - Assessment Assessment:: 35 y/oG2 now P1012 PPD#1 from at 37 3/7 wks - Plan Plan:: of twin gestation * Routine cares * Encourage breast feeding * Discharge home tomorrow Gestational HTN * BP check in 1-2 weeks
[2016-10-25] MEDS ORDERED: Bupivacaine 0.25% 10 ML SDV ONE (22:22)
[2016-10-26 04:44] VITALS: BP 134/92
--- NOTE | 2016-10-26 06:50 | PCM.DCSUM1 ---
Discharge Summary - Hospital Course Brief History: Admitted for induction for twins. Uncomplicated delivery and course. - Discharge Data Discharge Date: 10/26/16 Discharge Disposition: Home, Self-Care 01 Condition: Good - Patient Summary/Data Operative Procedure(s) Performed: /Breech extraction - Patient Instructions Diet: Usual Diet as Tolerated Activity: No Strenuous Activities Driving: May Drive Today Showering/Bathing: May Shower Notify Provider of: Fever - Discharge Plan Home Medications: Home Meds Albuterol [Ventolin HFA] 108 mcg INH Q4H PRN 10/05/16 [History] Budesonide 32 mcg NS DAILY 10/05/16 [History] Cetirizine [ZyrTEC] 10 mg PO DAILY 10/05/16 [History] EPINEPHrine [Epipen] 0.3 mg IM ONETIME PRN 10/05/16 [History] Folic Acid 1 mg PO DAILY 10/05/16 [History] Montelukast [Singulair] 10 mg PO DAILY 10/05/16 [History] Omeprazole 20 mg PO DAILY 10/05/16 [History] Multivitamin [Flintstones] 1 each PO DAILY 10/23/16 [History] Omeprazole Magnesium [Prilosec Otc] 20 mg PO 10/23/16 [History] Patient Handouts: Preeclampsia and Eclampsia, Vaginal Delivery, Care After, Breast Pumping Tips, [id number], Twins or Multiples, Challenges and Solutions Referrals: Allie Huynh MD [Primary Care Provider] - - Discharge Summary/Plan Comment DC Time >30 min.: No - Patient Data Vitals - Most Recent: Last Vital Signs Temp 36.6 C 10/26/16 04:35 Pulse 70 10/26/16 04:35 Resp 14 10/26/16 04:35 BP 134/92 H 10/26/16 04:35 Pulse Ox 100 10/26/16 04:35 Weight - Most Recent: 113.761 kg I&O - Last 24 hours: Intake & Output 10/25/16 10/25/16 10/26/16 14:59 22:59 06:59 Intake Total 120 240 Balance 120 240 Med Orders - Current: Current Medications Acetaminophen (Tylenol) 650 mg PO Q4H PRN PRN Reason: mild pain or fever Albuterol (Proventil Hfa) 0 gm INH Q4H PRN PRN Reason: Shortness of Breath Benzocaine/Menthol (Dermoplast Pain Relief [place]) 0 gm TOP ASDIRECTED PRN PRN Reason: Perineal Comfort Measure Last Admin: 10/24/16 10:57 Dose: 1 spray Docusate Sodium (Colace) 100 mg PO BID PRN PRN Reason: Constipation Emollient Ointment (Lansinoh Hpa) 0 gm TOP ASDIRECTED PRN PRN Reason: Sore Nipples Last Admin: 10/24/16 18:34 Dose: 7 gm Flunisolide (Nasalide Nasal [place]) 0 ml BAMBI DAILY [facility] Last Admin: 10/25/16 10:53 Dose: Not Given Ibuprofen (Motrin) 600 mg PO Q4H PRN PRN Reason: Mild pain or fever Last Admin: 10/25/16 16:06 Dose: 600 mg [place] (Tucks) 1 pad TOP ASDIRECTED PRN PRN Reason: Hemorrhoid pain Last Admin: 10/24/16 10:57 Dose: 1 pad Discontinued Medications Acetaminophen (Tylenol) 650 mg PO Q4H PRN PRN Reason: Pain (Mild 1-3) and fever Diphenhydramine HCl (Benadryl) 25 mg IVPUSH Q6H PRN PRN Reason: Pruritis Ephedrine Sulfate (Ephedrine Sulfate) 5 mg IVPUSH ASDIRECTED PRN PRN Reason: Hypotension Fentanyl (Sublimaze) 100 mcg EPIDUR Q3H PRN PRN Reason: Pain Last Admin: 10/23/16 21:04 Dose: 100 mcg Fentanyl/Bupivacaine HCl (Fentanyl/Bupivacaine/Ns 2 Mcg-0.125% 100 Ml) 100 ml EPIDUR ASDIRECTED [facility] Last Admin: 10/24/16 06:10 Dose: 100 ml Lactated Ringer's (Ringers, Lactated) 1,000 mls @ 40 mls/hr IV ASDIRECTED [facility] Last Admin: 10/24/16 05:21 Dose: 125 mls/hr Vancomycin HCl 1 gm/ Sodium (Chloride) 250 mls @ 250 mls/hr IV Q12H [facility] Last Admin: 10/24/16 07:30 Dose: 250 mls/hr Oxytocin/Lactated Ringer's (Pitocin In Lr 10 Units/1,000 Ml) 10 unit in 1,000 mls @ 500 mls/hr IV TITRATE GUERLINE PRN Reason: Protocol Last Admin: 10/24/16 09:30 Dose: 500 ml/hr, 500 mls/hr Oxytocin/Lactated Ringer's (Pitocin In Lr 10 Units/1,000 Ml) 10 unit in 1,000 mls @ 12 mls/hr IV TITRATE GUERLINE; 2 MUNITS/MIN PRN Reason: Protocol Last Titration: 10/24/16 07:56 Dose: 999 mls/hr Misoprostol (Cytotec) Confirm Administered Dose 600 mcg .ROUTE .STK-MED ONE Stop: 10/24/16 07:53 Misoprostol (Cytotec) 600 mcg PO ONETIME ONE Stop: 10/24/16 08:39 Last Admin: 10/24/16 08:00 Dose: 600 mcg Nalbuphine HCl (Nubain) 10 mg IVPUSH Q2H PRN PRN Reason: Pain (moderate 4-6) Ondansetron HCl (Zofran) 4 mg IVPUSH Q4H PRN PRN Reason: Nausea/Vomiting Ondansetron HCl (Zofran) 4 mg IVPUSH ONETIME PRN PRN Reason: Nausea/Vomiting Sodium Chloride (Saline Flush) 10 ml FLUSH ASDIRECTED PRN PRN Reason: Keep Vein Open *Q Meaningful Use (DIS) - VTE *Q VTE Criteria *Q: - Stroke *Q Stroke Criteria *Q: - AMI *Q AMI Criteria *Q:
[2016-10-26] MEDS: Ibuprofen 600 MG Tab PO PRN (10:29)
== END 2016-10-26 10:50 | disposition home or self-care (01) | DRG 560 ==
LOC: JD.OB 06:48 → OBSVTOIN 10-24 07:52 → JD.OB 10-24 07:52
PROVIDERS: ADMIT Obstetrics & Gynecology; ATTEND Obstetrics & Gynecology
PROC: 10E0XZZ Delivery of Products of Conception, External Approach (ICD-10-PCS; principal; 2016-10-24)
PROC: 3E033VJ Introduction of Other Hormone into Peripheral Vein, Percutaneous Approach (ICD-10-PCS; 2016-10-24)
PROC: 10907ZC Drainage of Amniotic Fluid, Therapeutic from Products of Conception, Via Natural or Artificial Opening (ICD-10-PCS; 2016-10-24)
PROC: 0HQ9XZZ Repair Perineum Skin, External Approach (ICD-10-PCS; 2016-10-24)
PROC: 00HU33Z Insertion of Infusion Device into Spinal Canal, Percutaneous Approach (ICD-10-PCS; 2016-10-24)
PROC: 3E0R3CZ (ICD-10-PCS; 2016-10-24)
DX: O13.4 Gestational [pregnancy-induced] hypertension without significant proteinuria, complicating childbirth (principal); O30.043 Twin pregnancy, dichorionic/diamniotic, third trimester; O99.820 Streptococcus B carrier state complicating pregnancy; O32.8XX2 Maternal care for other malpresentation of fetus, fetus 2; O70.0 First degree perineal laceration during delivery; Z3A.37 37 weeks gestation of pregnancy; Z37.2 Twins, both liveborn; Z88.1 Allergy status to other antibiotic agents; Z91.018 Allergy to other foods; J45.909 Unspecified asthma, uncomplicated
CPT/HCPCS: 36415; 81001; 82565; 84450; 84460; 85027; 86850; 86900; 86901; A9270-GY; J2590; J3010; J3370; J7050; J7120